=== PATIENT | male | born 1950 | race Caucasian/White ===

== ENCOUNTER 2022-08-05 07:25 | Day surgery (SDC) | payer MEDICARE, BC ==
[2022-08-05] VITALS (13 sets, daily range): BP systolic 121–181; BP diastolic 66–108
[~2022-08-05] VITALS: Ht 175.3 cm; Wt 95.7 kg
[~2022-08-05 07:25] MED LIST: ASPI-1264 PO; FLEC100T2 PO; LISI20TA28 PO; LOP25T PO
[2022-08-05] MEDS ORDERED: ROSU10TA28 PO (07:59)
[2022-08-05] MEDS ORDERED: midazolam 1 mg/ML 2ml injection ONE (08:10)
[2022-08-05] MEDS ORDERED: nitroGLYCERIN-Tridil 50MG/D5W 250 ML IV ONE (08:10)
[2022-08-05] MEDS ORDERED: verapamil 2.5 mg/ml inj IV ONE (08:10)
[2022-08-05] MEDS ORDERED: fentaNYL/PF 50MCG/1 ML 2ML syringe ONE (08:10)
[2022-08-05] MEDS ORDERED: iohexol 350MG/ML 100ml bottle IV ONE ×2 (08:11→10:32)
[2022-08-05] MEDS ORDERED: heparin 1,000unit/ml 10ml vial 10 ML ONE (08:11)
[2022-08-05] MEDS ORDERED: iohexol 350 MG/ML 50ML vial IV ONE (08:11)
[2022-08-05] MEDS ORDERED: LIDOcaine 1% (10mg/ml) 2ml vial ONE (08:11)
[2022-08-05 08:34] LABS: BASOPHILS # (AUTO) 0.1 X10'3 (0-0.2); EOSINOPHILS # (AUTO) 0.1 X10'3 (0-0.9); EOSINOPHILS % (AUTO) 1.7 % (0-6); HEMATOCRIT 40.8 % (42.0-52.0); HEMOGLOBIN 12.7 g/dl (14.0-17.9); LYMPHOCYTES # (AUTO) 1.5 X10'3 (1.1-4.8); LYMPHOCYTES % (AUTO) 18.2 % (21-51); MEAN CORPUSCULAR HEMOGLOBIN 23.5 PG (27.0-31.0); MEAN CORPUSCULAR HGB CONC 31.2 g/dL (33.0-36.5); MEAN CORPUSCULAR VOLUME 75.5 FL (78-98); MEAN PLATELET VOLUME 7.7 FL (7.4-10.4); MONOCYTES # (AUTO) 0.8 X10'3 (0-0.9); MONOCYTES % (AUTO) 9.5 % (2-12); NEUTROPHILS # (AUTO) 5.6 X10'3 (1.8-7.7); NEUTROPHILS % (AUTO) 69.6 % (42-75); PLATELET COUNT 291 X10'3 (140-440); RED CELL DISTRIBUTION WIDTH 18.7 % (11.5-14.5); WHITE BLOOD COUNT 8.1 X10'3 (4.5-11.0)
[2022-08-05] MEDS ORDERED: LORazepam 0.5 MG tablet PO PRN (08:35)
[2022-08-05] MEDS ORDERED: diphenhydrAMINE 25mg capsule PO PRN (08:35)
[2022-08-05 08:40] LABS: ALBUMIN 3.7 G/DL (3.4-5.0); ANION GAP 9 (8-16); BLOOD UREA NITROGEN 17 MG/DL (7-18); BUN/CREATININE RATIO 18.7 (5.4-32.0); CALCIUM 8.7 MG/DL (8.5-10.1); CHLORIDE 106 MMOL/L (99-107); CREATININE 0.91 MG/DL (0.60-1.10); GLUCOSE 99 MG/DL (70-104); POTASSIUM 4.2 MMOL/L (3.5-5.1); SODIUM 141 MMOL/L (135-145); TOTAL CARBON DIOXIDE 26.4 MMOL/L (24-32); eGFR 82 ML/MIN
[2022-08-05 08:43] LABS: APTT 31 SECONDS (22-32)
[2022-08-05 09:00] LABS: ANISOCYTOSIS 2+; PLATELET ESTIMATE NORMAL
[2022-08-05] MEDS ORDERED: normal saline 1000ml 1,000 ML IV SCH ×2 (09:00→13:40)
[2022-08-05 09:01] LABS: MICROCYTOSIS 1+
[2022-08-05] MEDS ORDERED: HEPARIN SOD,PORK IN 0.45% NACL 0 ML IV ONE (10:37)
[2022-08-05 11:15] LABS: ISTAT HGB ART 12.9 g/dl (14.0-17.9); ISTAT Hct ART 38 %PCV (42-52); ISTAT O2 SATURATION ARTERIAL 98 % (95-98); ISTAT SOURCE ART
--- NOTE | 2022-08-05 11:46 | NUR ---
Bedside report received from RENATA Carias s/o angiogram. Vital signs stable and NSR on hall monitor. Right radial site stable with no signs of bleeding/hematoma.
[2022-08-05] MEDS ORDERED: HYDROcodone/acetaminophen 10/325mg tab PO PRN (13:35)
[2022-08-05] MEDS ORDERED: HYDROcodone/acetaminophen 5mg/325mg tablet PO PRN (13:35)
[2022-08-10 06:52] LABS: ISTAT Hct MIX 38 %PCV (42-52); ISTAT O2 SATURATION MIX VENOUS 73 % (60-80); ISTAT SOURCE VEN
== END 2022-08-05 17:00 | disposition home or self-care (01) ==
LOC: SSTAY O 07:25
PROVIDERS: ATTEND Internal Medicine Cardiovascular Disease
DX: I25.10 Atherosclerotic heart disease of native coronary artery without angina pectoris (principal); I48.91 Unspecified atrial fibrillation; I10 Essential (primary) hypertension; I48.0 Paroxysmal atrial fibrillation; E66.3 Overweight; Z98.890 Other specified postprocedural states; Z95.0 Presence of cardiac pacemaker; Z79.899 Other long term (current) drug therapy; Z79.82 Long term (current) use of aspirin
CPT/HCPCS: 76937; 80048; 82803; 85014; 85025; 85610; 85730; 93005; 93460; 93571; 99152; 99153; A6258; C1751; C1769; C1894; J1644; J2250; J3010; J3490; J7030; Q0163; Q9967; 85008; A4620; A4663; A6402; C1725

== ENCOUNTER 2022-12-29 12:27 | Outpatient (CLI) | payer MEDICARE, BC ==
[~2022-12-29 12:27] MED LIST changes: +ROSU10TA28 PO
== END 2022-12-29 23:59 | disposition home or self-care (01) ==
LOC: CARD DIAG 12:27
PROVIDERS: ATTEND Internal Medicine Cardiovascular Disease
DX: I08.0 Rheumatic disorders of both mitral and aortic valves (principal); I48.0 Paroxysmal atrial fibrillation; R06.02 Shortness of breath
CPT/HCPCS: 93306